=== PATIENT | female | born 2000 ===

== ENCOUNTER 2021-12-16 00:40 | Outpatient (CLI) | payer SELFPAY ==
--- NOTE | 2021-12-16 | DI.US_ITS ---
Exam(s) US OB MUNA WEIGHT EXAM: US OB MUNA WEIGHT CLINICAL HISTORY: DISCREPANCY IN MEASUREMENTS,Z34.93,GROWTH. TECHNIQUE: Transabdominal obstetrical ultrasound was performed. COMPARISON: US US OB 2-3 TRIMESTER from 11/02/2021 FINDINGS: There is a single viable intrauterine gestation with cardiac activity identified-131 bpm The fetus is presently in cephalic position . Amniotic fluid: There is a normal amount of amniotic fluid. Placental location: The placenta is anterior grade 1,with no evidence of placenta previa. Dating parameters place this at approximately 30 weeks and 5 days gestational age, implying MARIO of February 19, 2022. BPD measures 31 weeks and 4 days HC measures 31 weeks and 3 days AC measures 29 weeks and 5 days FL measures 29 weeks and 6 days Estimated weight is 1506 gm-3 pounds 5 ounce UMBILICAL ARTERY DOPPLER: S/D = 2.6 and 2.4 PI= 0.98 and 0.93 RI = 0.62 and 0.58 IMPRESSION:: Viable intrauterine gestation, as described above. DATA REPOSITORY:
== END 2021-12-16 01:00 ==
LOC: DI 00:41
PROVIDERS: Visit Provider Family Medicine
DX: Z3A.30 30 weeks gestation of pregnancy (principal); O26.843 Uterine size-date discrepancy, third trimester
CPT/HCPCS: 76816

== ENCOUNTER 2022-01-28 08:15 | Inpatient (IN) | payer SELFPAY ==
[2022-01-28] VITALS (14 sets, daily range): BP systolic 91–135; BP diastolic 51–70; PULSE 61–93; RESP 16–18; TEMP 36.7–37.1; O2SAT 99
--- NOTE | 2022-01-28 09:55 | HPE_ITS ---
Date of service: 01/28/22 Time of Service: 09:55 Assessment and Plan Assessment and plan (1) : Status: Acute Assessment and plan: term iup in active labor GBS neg Low risk for SD or PP Hemm expect SGA infant - EFW 3000 Will monitor, encourage activity and expect Local and remote interpreter for the deaf in place OB-HPI Labor/Delivery History of Present Illness Reason for Visit: LABOR Chief Complaint: Uterine Contractions; Suspected Labor. Comments: edc 01/31/2022 based on early sono and sure LMP April 26 2021 History of Present Narrative: regular care: Problems: Anemia 2nd tri 9.4/28 improved to 10.6 on oral iron SGA - due to maternal stature - good serial/interval growth Review of Systems Narrative: steady ctx starting ~5:00 - no ROM No HUITRON, Abd pain/sx, blurry vision. Slept some, taking po fluids PFSH All Active Problems (Updated 01/28/22 @ 10:21 by Jaspreet Montero) (Acute) Social History Smoking risk assessment performed?: No History History 1 Para 0 Hx # Term Pregnancies Multiple births Hx # Pregnancies Ectopic pregnancies AB induced Hx Number of Living Children AB spontaneous Exam Physical Exam Vital Signs Reviewed: Yes Constitutional Comments: alert, comfortable between ctx up walking, plans to get in tub Detailed Labor and Delivery Exam Dilation: 5 Effacement (%): 100 station: 0 (0 station) Position: OA (oa) Cervix position: mid Reid Score: Cervical Points Exam 0 1 2 3 Dilation Closed 1-2cm 3-4 cm 5-6cm Effacement 0-30% 40-50% 60-70% 80% Consistency Firm Medium Soft Station -3 -2 -1,0 +1,+2 Position Posterior Mid Anterior Amniotic Membrane Status: Intact Monitor Mode: External Contraction Frequency(min): q2-3 Contraction Duration(sec): 30-40 Contraction Intensity: Moderate/Strong Fetus A Heart Rate Baseline: 130 Monitor Accelerations: 10 X 10 Monitor Decelerations: None Variability: Moderate (6-25 BPM) Presentation: Vertex Categories: Category I Est. Weight: 3000 kg Assessment Note: cat 1, EFW 3000 based on [place] Detailed HEENT Exam Comments: nl Detailed Respiratory Exam Comments: lungs clear, nl Detail Cardiovascular Exam Comments: cvs - reg, no murmur Detailed Abdominal Exam Comments: firm ut with ctx Detailed Exam Comments: 5 cm/100% effaced/0 station ~8:20 at office after ~3 hrs ctx Detailed Extremities Exam Comments: no edema Results Results Group Beta Strep: Negative Blood Type: O+ Rubella Status: Immune Lab Results: h/h improved from 9.4 to 10.6 with oral iron Risk Assessment Risk for Shoulder Dystocia Increased Risk?: No Risk for Post- Hemorrhage At Risk?: No Risks Reviewed Risks Reviewed Upon Admission: Yes
[2022-01-28 10:02] LABS: Source Nasal/Nares
[2022-01-28 10:37] LABS: HCT 37.6 % (36.0-46.0); HGB 12.5 g/dL (11.2-15.7); MCH 31.6 pg (27.0-33.0); MCHC 33.2 % (32.0-36.0); MCV 95.2 fL (80-95); MPV 11.1 fL (8.0-11.0); Platelet Count 210 10^3/uL (130-400); RBC 3.95 10^6/uL (3.93-5.22); RDW 13.4 % (11.7-14.6); RDW-SD 46.9 fL; WBC 10.84 10^3/uL (4.4-10.8)
--- NOTE | 2022-01-28 11:08 | W.PM.OBNL1 ---
Date of service: 01/28/22 Time of Service: 11:08 Objective Abnormal lab results 01/28/22 Range/Units 10:24 WBC 10.84 H (4.4-10.8) 10^3/uL MCV 95.2 H (80-95) fL MPV 11.1 H (8.0-11.0) fL Laboratory Results WBC 10.84 10^3/uL (4.4-10.8) H 01/28/22 10:24 RBC 3.95 10^6/uL (3.93-5.22) 01/28/22 10:24 Hgb 12.5 g/dL (11.2-15.7) 01/28/22 10:24 Hct 37.6 % (36.0-46.0) 01/28/22 10:24 MCV 95.2 fL (80-95) H 01/28/22 10:24 MCH 31.6 pg (27.0-33.0) 01/28/22 10:24 MCHC 33.2 % (32.0-36.0) 01/28/22 10:24 RDW 13.4 % (11.7-14.6) 01/28/22 10:24 Plt Count 210 10^3/uL (130-400) 01/28/22 10:24 MPV 11.1 fL (8.0-11.0) H 01/28/22 10:24 COVID-19 Source Nasal/Nares 01/28/22 09:25 Objective Narrative Objective Narrative: ctx steadily more intense. SROM clear while up walking FHT 130 - mod variability cvx - ~8 cm/100%/+1 station A: Excellent progress - no signs dystocia P: Expect - cont Ext FM - intermittent Will plan huddle once in 2nd stage S.[place]reaux Results Hemoglobin/Hematocrit: Hgb 12.5 g/dL (11.2-15.7) 01/28/22 10:24 Hct 37.6 % (36.0-46.0) 01/28/22 10:24 Abnormal Lab Findings: Abnormal Labs 01/28/22 10:24 WBC 10.84 H MCV 95.2 H MPV 11.1 H
[2022-01-28] MEDS: Oxytocin 10 UNITS/ML VIAL IM (12:28)
--- NOTE | 2022-01-28 12:49 | OBVDS_ITS ---
Date of service: 01/28/22 Time of Service: 12:49 OB Labor/ Delivery Information Baby A Delivery Delivery Method: Spontaneaous Presentation: Vertex Cephalic Position: Vertex Vertex Position: Left Occipital Anterior Cord Description-Baby A: 3 Vessels and Clamped/Cut Cord Description Comment: marginal/villamentous insertion Amniotic Fluid: Clear Estimated Blood Loss: 200 cc Delivery Outcome: Liveborn Infant Complications: none - good Infant Transferred: Remains with Mother Note: second stage huddle @ 11:35 when Jasmina complete and pushing commensed. Low risk for SD or PPHem. expected. Steady strong pushing over the next 50 minutes with only transient liset due to head compression. With no caput or molding and steady descent the fetus crowned in direct OA position. Head delivered in all 4's over intact perineum. Nose and mouth suctioned on perineum and 's shoulders delivery readily with a single maternal push. No nuchal cord. [place] vigorous infant girl placed on mat chest. 9/9. placenta delivered ~15 min later - 3 v cord, intact kalia with marginal/villimentous insertion. No mec staining or calcifications. Placenta volume ~400 cc In office sono Kal[place] measurement was 330 24 hrs ago. Perineum intact. Scant vag sidewall abraisions, no tears in need of suturing. Clitoris and urethra are intact. Firm fundus 2 below umbilicus. due to nausea/vomiting during second stage will give her IV bolus. Supriya Montero Providers Doctor: Jaspreet Montero Nurse: Meri Sibley Nurse: Dalton Olmos Labor/Delivery Information Number of Babies in Womb: 1 Steroids Given: None Reason Steroids Not Administered: N/A Group Beta Strep: Negative Antibiotics Administered: No Rubella Status: Immune Blood Type: O+ Medication in Delivery: none Shoulder Dystocia: No Stages of Labor Onset of Labor Date: 01/28/22 Onset of Labor Time: 05:00 ROM Baby A: 01/28/22 ROM Baby A: 11:00 ROM Total Time- Baby A: [id number] Delivery Date-Baby A: 01/28/22 Delivery Time-Baby A: 12:24 Placenta Delivery Date-Baby A: 01/28/22 Placenta Delivery Time-Baby A: 12:30 Labor-Stage 3 Duration: 6 minutes Total Length of Labor-Baby A: 7 hours and 24 minutes Placenta Status: Delivered Baby A Gender: Female Gestational Status: Term (39-41.6 wks) Gestational Age in Weeks/Days: 39 Weeks and 4 Days Score-1 Minute Interval(Baby A) Heart Rate-1 minute: 100 BPM or Greater Respiratory Effort- 1 minute: Spontaneous/Strong Cry Muscle Tone-1 minute: Active Movement Reflex Response-1 minute: Prompt Response Color-1 minute: Bluish Hands or Feet Total Score-1 minute: 9 Score-5 Minute Interval(Baby A) Heart Rate- 5 minute: 100 BPM or Greater Respiratory Effort-5 minute: Spontaneous/Strong Cry Muscle Tone-5 minute: Active Movement Reflex Response-5 minute: Prompt Response Color-5 minute: Bluish Hands or Feet Total Score- 5 minute: 9
[2022-01-28 12:58] LABS: COVID-19 PCR Negative (Negative)
[2022-01-28] MEDS: Normal Saline Flush 10 ML SYR IVP (13:10)
[2022-01-28] MEDS: Lactated Ringers 1,000 ML 1000 ML IV (13:15)
[2022-01-29 07:22] LABS: HCT 30.8 % (36.0-46.0); HGB 10.3 g/dL (11.2-15.7); MCHC 33.4 % (32.0-36.0); MCV 92.8 fL (80-95); MPV 11.1 fL (8.0-11.0); Platelet Count 181 10^3/uL (130-400); RBC 3.32 10^6/uL (3.93-5.22); RDW 13.4 % (11.7-14.6); RDW-SD 45.1 fL; WBC 9.96 10^3/uL (4.4-10.8)
[2022-01-29 07:45] VITALS: BP 96/58; PULSE 66; RESP 12; TEMP 36.8
[2022-01-29] MEDS: Acetaminophen 325 MG TAB 650 MG PO (08:04)
--- NOTE | 2022-01-29 08:18 | W.PM.OBPNV1 ---
Date of service: 01/29/22 Time of Service: 08:19 Exam Physical Exam Vital signs: Temp Pulse Resp BP Pulse Ox 36.8 C 65 18 100/65 99 01/28/22 23:57 01/28/22 23:57 01/28/22 23:57 01/28/22 23:57 01/28/22 23:57 Results Hemoglobin/Hematocrit: Hgb 10.3 g/dL (11.2-15.7) L D 01/29/22 07:10 Hct 30.8 % (36.0-46.0) L 01/29/22 07:10 Abnormal Lab Findings: Abnormal Labs 01/28/22 01/29/22 10:24 07:10 WBC 10.84 H RBC 3.32 L Hgb 10.3 L D Hct 30.8 L MCV 95.2 H MPV 11.1 H 11.1 H Additional Findings Results: Jasmina is off to great start with nursing. More confident. Got some sleep, showered, doing all self care PO and fluid intake are good expected dec lochia and ut cramping with nursing O: firm mildly tender uterus 3 below umb dec lochia no pedal edema good vitals, good urine output A: 18 hrs post - doing well nursing off to good start - need further support/coaching P: Home in 24 hrs to maximize BF support, parenting, care Post h/h is as expected given delivery and IV fluid bolus. breast pump planned will coordinate education with presence of bi-lingual relative. Supriya Montero
[2022-01-29 20:30] VITALS: BP 96/62; PULSE 80; RESP 18; TEMP 36.8
[2022-01-30 07:45] VITALS: BP 94/57; PULSE 61; RESP 20; TEMP 36.8; O2SAT 99
--- NOTE | 2022-01-30 08:13 | W.PM.OBDISCH ---
DS: Diagnosis Discharge Diagnosis (1) : Status: Acute Asessment and Plan: Jasmina has done terrific with routine rapid recovery minimal lochia, minimal cramping abnd pain Doing all self care Breast feeding off to good start. Showering, eating, sleeping well. O: Fundus @ 3 below umb No ext edema Bright, alert, comfortable P:Home today F/u set mon 9AM Discharge Plan Disposition Patient Disposition: HOME Condition: Good Discharge Details Reason For Visit: Labor Admit Date/Time: 01/29/22 08:15 Admit Provider: Jaspreet Montero Attending Provider: Jaspreet Montero Hospital Course Hospital Course: as above - s/p with routine pp recovery Discharge Instructions Activity:: Activity as Tolerated Equipment/Supplies:: breast pump Diet:: As Tolerated Discharge Orders Discharge Orders: Discharge Order (Routine); Ordered 01/30/22 Ordered By: Jaspreet Montero OB:DS Summary Summary Vaginal Delivery Method: Spontaneaous Episiotomy Description: None Laceration Description: None Contraception Discussed Contraception Discussed: Yes, [place] Infant Gender-Baby A: Female weight: 2655 g Status at Discharge Functional status at discharge: independent ambulation Overall status at discharge: patient is back to baseline Mental Status: mental status grossly normal Speech and Movement: speech and movement normal Mood: congruent mood Affect: normal affect Exam Physical Exam Vital signs: Temp Pulse Resp BP Pulse Ox 36.8 C 80 18 96/62 L 99 01/29/22 20:30 01/29/22 20:30 01/29/22 20:30 01/29/22 20:30 01/28/22 23:57 Narrative: as above PFSH All Active Problems (Updated 01/28/22 @ 10:21 by Jaspreet Montero) (Acute) Social History Smoking/Tobacco Use Status: Never Smoking risk assessment performed?: Yes Alcohol Intake: never Substance use type: does not use Do you feel safe at home: Yes Do you feel safe in your relationship?: Yes History History 1 Para 0 Hx # Term Pregnancies Multiple births Hx # Pregnancies Ectopic pregnancies AB induced Hx Number of Living Children AB spontaneous DS: Data Vitals/I&O Vitals and I&O: Vital Signs Temperature 36.8 C 01/29/22 20:30 Pulse 80 01/29/22 20:30 Pulse Rhythm Regular 01/29/22 20:30 Respiratory Rate 18 01/29/22 20:30 Respiratory Depth Normal 01/28/22 23:57 Blood Pressure 96/62 L 01/29/22 20:30 Blood Pressure Mean 73 01/29/22 20:30 Pulse Oximetry 99 01/28/22 23:57 Oxygen Delivery Method Room Air 01/28/22 11:11 Oxygen Flow Rate 0 01/28/22 11:11 Pain Level 3 01/29/22 08:04
[2022-01-30] MEDS: Ibuprofen 600 MG TAB PO (13:13)
[2022-02-02 16:24] VITALS: BP 125/58; PULSE 113
== END 2022-01-30 13:25 | disposition home or self-care (01) | DRG 807 ==
PROVIDERS: Admitting Provider Family Medicine; Visit Provider Family Medicine
DX: O99.02 Anemia complicating childbirth (principal); Z37.0 Single live birth; D64.9 Anemia, unspecified; Z3A.39 39 weeks gestation of pregnancy
CPT/HCPCS: 36415; 85027; 86850; 86900; 86901; 87635; J2590; J3490